=== PATIENT | female | born 1965 | race Caucasian/White ===

== ENCOUNTER 2020-02-22 15:28 | Outpatient (CLI) | payer OTHER, SELFPAY ==
--- NOTE | ~2020-02-22 | MM_ITS ---
EXAMINATION: MM screening khadar BI w shyam HISTORY: Screening TECHNIQUE: Craniocaudal and mediolateral oblique 3-D tomosynthesis images were obtained and synthetic 2-D images were generated. CAD analysis was submitted and interpreted. COMPARISON: 12/27/2018 BREAST PARENCHYMAL COMPOSITION: There are scattered areas of fibroglandular density. FINDINGS: There is no evidence of suspicious mass, calcification, or architectural distortion to sugg est malignancy in either breast. There has been no suspicious interval change. IMPRESSION: 1. No mammographic evidence of malignancy. 2. Recommend routine screening mammography in one year. BI-RADS Category 1: Negative Reviewed, dictated and finalized at location A. GE ATTENDANT
== END 2020-02-22 15:29 | disposition home or self-care (01) ==
PROVIDERS: PCP Nurse Practitioner Adult Health; Visit Provider Nurse Practitioner Adult Health
DX: Z12.31 Encounter for screening mammogram for malignant neoplasm of breast (principal)
CPT/HCPCS: 77063; 77067

== ENCOUNTER 2022-05-30 09:40 | Outpatient (CLI) | payer OTHER, SELFPAY ==
--- NOTE | ~2022-05-30 | US_ITS ---
Limited Abdominal Sonogram: Real-time sonographic imaging of the right upper quadrant was performed. Clinical History: Right upper quadrant pain Findings: The liver appears normal with no evidence of mass lesion or bile duct dilatation. Main por joe vein demonstrates normal direction of flow. The gallbladder is well distended, and appears normal with no evidence of gallstone or wall thickening. The common bile duct measures 4 mm. The visualize d pancreas, aorta, and IVC are unremarkable. Impression: No significant abnormality seen. Reviewed, dictated and finalized at location M. Impression: No significant abnormality seen.
== END 2022-05-30 09:41 | disposition home or self-care (01) ==
PROVIDERS: PCP Family Medicine; Visit Provider Physician Assistant Medical
DX: R10.11 Right upper quadrant pain (principal)
CPT/HCPCS: 76705

== ENCOUNTER 2022-07-11 16:09 | Outpatient (CLI) | payer OTHER, SELFPAY ==
--- NOTE | ~2022-07-11 | MM_ITS ---
EXAMINATION: MM screening khadar BI w shyam HISTORY: Screening mammogram TECHNIQUE: Craniocaudal and mediolateral oblique 3-D tomosynthesis images were obtained and synthetic 2-D images were generated. CAD analysis was submitted and interpreted. COMPARISON: 02/22/2020 bilateral screening mammogram 02/13/2019 limited right breast ultrasound examination 02/02/2019 diagnostic right mammogram 12/27/2018 bilateral screening mammogram/ BREAST PARENCHYMAL COMPOSITION: The breasts are almost entirely fatty. FINDINGS: Stable approximately 6.5 mm circumscribed opacity in the upper mid right breast, unchanged since 12/27/2018. There is no evidence of suspicious mass, calcification, or architectural distortion to suggest malignancy in either breast. There has been no suspicious interval change. IMPRESSION: 1. No mammographic evidence of malignancy. 2. Recommend routine screening mammography in one year. BI-RADS Category 2: Benign finding(s). Reviewed, dictated and finalized at location A.
== END 2022-07-11 16:10 | disposition home or self-care (01) ==
LOC: ANHIMG 16:12
PROVIDERS: PCP Family Medicine; Visit Provider Physician Assistant Medical
DX: Z12.31 Encounter for screening mammogram for malignant neoplasm of breast (principal)
CPT/HCPCS: 77063; 77067

== ENCOUNTER 2022-10-17 20:40 | Emergency (ER) | payer OTHER, SELFPAY ==
--- NOTE | ~2022-10-17 | XR_ITS ---
EXAM: XR shoulder LT min 2V, XR humerus LT DATE: 10/17/2022 21:25 HISTORY: FALL . COMPARISON: None available. FINDINGS: Normal mineralization. Comminuted fracture of the proximal left humerus, primarily involvi ng the surgical neck of the humerus, with one half shaft width medial displacement. A fracture line a ppears to involve the greater tuberosity. No lytic or blastic lesion. Joint spaces are maintained. No erosion or periosteal change. Soft tissues within normal limits. IMPRESSION: Comminuted and displaced fracture the proximal left humerus at the level of the surgical neck, with likely involvement of the greater tuberosity. Reviewed, dictated and finalized at location K. IMPRESSION: Comminuted and displaced fracture the proximal left humerus at the level of the surgical neck, with likely involvement of the greater tuberosity.
[2022-10-17 20:46] VITALS: BP 133/71; PULSE 75; RESP 20; TEMP 36.1; O2SAT 100
[2022-10-17] MEDS: ONDANSETRON INJ 4 MG/2 ML VIAL IV PUSH (21:50)
[2022-10-17] MEDS: CYCLOBENZAPRINE HCL 10 MG TABLET PO (21:57)
--- NOTE | 2022-10-17 22:33 | ED.UPPEXIN ---
HPI - Extremity Injury (Upper) General Chief Complaint: Extremity Injury, Upper Stated Complaint: L wrist and arm pain s/p fall Time Seen by Provider: 10/17/22 21:36 Source: patient Mode of arrival: EMS Limitations: no limitations History of Present Illness HPI narrative: This is a 56 year old female that presents to the ER for left arm pain ongoing since a fall just prior to arrival. Reports she tripped at work and fell forward. Reports catching herself with her left arm. She did not hit her head or lose consciousness. Reports pain and tingling to the left shoulder. Reports decreased ROM in the shoulder. Denies numbness. Related Data Allergies Allergy/AdvReac Type Severity Reaction Status Date / Time No Known Allergies Allergy Verified 10/17/22 21:32 Review of Systems Review of Systems: CONSTITUTIONAL: Denies fever MUSCULOSKELETAL: Reports joint pain, and myalgia. NEUROLOGIC: Denies numbness All systems reviewed & are unremarkable except as noted in HPI and below PMFSH Past Medical History Medical History Depressive disorder, not elsewhere classified Fibroids Headache Human papillomavirus Migraine NOS/intractable Obesity, unspecified Tension headache Surgical History Surgical History H/O hysterectomy for benign disease Family History Family History Father , 2010 Bladder cancer Lung cancer Mother Asthma Thyroid activity decreased Social History Social History Smoking status: Never smoker Second hand tobacco smoke exposure: No Alcohol intake: current Drinks per week: 1 Alcohol use details: wine Substance use: never Substance use type: does not use Lack of Transportation: No Lack of Food: Sometimes True Current Housing: I Have Housing Concerned About Future Housing: No Difficulty Paying Gas/Electric Bills: No Difficulty Paying for Meds: No Currently Unemployed: No Education: High School Diploma/GED Difficulty w/ Childcare or Family Care: No Living arrangements: with family Occupation/Education: occupation Gender identity (if verbalized by the patient): Female Sexual Orientation (if Verbalized by the Patient): Straight or Heterosexual Exam Narrative: GENERAL: Well-appearing, well-nourished, and in no acute distress. HEAD: Normocephalic, atraumatic. EYES: EOMI. CHEST: Clear to auscultation. No respiratory distress. No wheezes rales or rhonchi HEART: Regular rate and rhythm. No murmur heard. Normal peripheral pulses. EXTREMITIES: No edema or obvious deformity. Decreased active ROM in the left shoulder due to pain. Normal radial pulse. Normal sensation SKIN: Warm, dry, no rash. NEURO: No focal deficits. Alert and oriented x3. PSYCH: Normal mood and affect Course Course Emergency Course: Patient was updated on workup and agrees with plan of care Consultations Consultation #1: Spoke with Dr. Verdin about patient and workup. Would like patient placed in shoulder immobilizer. Will follow-up in clinic Date: 10/17/22 Vital Signs Vital signs: Vital Signs Temperature 97.0 F L 10/17/22 20:46 Pulse Rate 75 10/17/22 20:46 Respiratory Rate 20 10/17/22 20:46 Blood Pressure 133/71 10/17/22 20:46 Pulse Oximetry 100 10/17/22 20:46 Oxygen Delivery Room Air 10/17/22 20:46 Temperature 97.0 F L 10/17/22 20:46 Pulse Rate 75 10/17/22 20:46 Respiratory Rate 20 10/17/22 20:46 Blood Pressure 133/71 10/17/22 20:46 Pulse Oximetry 100 10/17/22 20:46 Oxygen Delivery Room Air 10/17/22 20:46 MDM - Extremity Injury (Upper) MDM Narrative Medical decision making narrative: Patient presents to the ER for left shoulder pain after an injury at work. Patient is neurovascularly intact
== END 2022-10-17 22:46 | disposition home or self-care (01) ==
PROVIDERS: Emergency Provider Physician Assistant; PCP Family Medicine
DX: S42.212A Unspecified displaced fracture of surgical neck of left humerus, initial encounter for closed fracture (principal); E66.9 Obesity, unspecified; Z68.35 Body mass index [BMI] 35.0-35.9, adult; Z90.710 Acquired absence of both cervix and uterus; W01.0XXA Fall on same level from slipping, tripping and stumbling without subsequent striking against object, initial encounter
CPT/HCPCS: 73030; 73060; 96374; 99284; A9270; J2270; J2405

== ENCOUNTER 2023-09-18 15:17 | Outpatient (CLI) | payer OTHER, SELFPAY ==
--- NOTE | ~2023-09-18 | XR_ITS ---
[id number] 09/18/2023 15:46 Indication: Right knee pain Procedure: 2 views right knee Comparison: No prior studies for comparison. Findings: There is mild osteoarthritis of the right knee. Small joint effusion. No fracture or trauma tic malalignment. No foreign bodies. Impression: 1: Mild tricompartment osteoarthritis of the right knee. Reviewed, dictated and finalized at location B. Impression: 1: Mild tricompartment osteoarthritis of the right knee.
== END 2023-09-18 15:18 ==
PROVIDERS: PCP Family Medicine; Visit Provider Student in an Organized Health Care Education/Training Program
DX: M25.561 Pain in right knee (principal); M17.11 Unilateral primary osteoarthritis, right knee
CPT/HCPCS: 73560

== ENCOUNTER 2024-07-16 10:13 | Outpatient (CLI) | payer OTHER, SELFPAY ==
--- NOTE | ~2024-07-16 | XR_ITS ---
Left Knee Technique: AP and sunrise views were obtained. Clinical History: Pain Findings: No fracture or dislocation is seen. Osseous alignment is anatomic. Joint spaces are preserv ed without degenerative or erosive change. Soft tissues are unremarkable. No joint effusion is seen. Impression: Unremarkable left knee radiographs. Reviewed, dictated and finalized at [facility]. Impression: Unremarkable left knee radiographs.
== END 2024-07-16 10:14 | disposition home or self-care (01) ==
LOC: MICIMG 10:14
PROVIDERS: PCP Family Medicine; Visit Provider Student in an Organized Health Care Education/Training Program
DX: M25.562 Pain in left knee (principal)
CPT/HCPCS: 73560

== ENCOUNTER 2024-12-07 09:23 | Outpatient (CLI) | payer OTHER, SELFPAY ==
--- NOTE | ~2024-12-07 | MM_ITS ---
EXAMINATION: MM screening [facility] BI w shyam HISTORY: Screening TECHNIQUE: Craniocaudal and mediolateral oblique 3-D tomosynthesis images were obtained and synthetic 2-D images were generated. CAD analysis was submitted and interpreted. COMPARISON: Comparison to multiple prior studies sequentially, with oldest reviewed study dated 12/27/2018. BREAST PARENCHYMAL COMPOSITION: Not Dense. The breasts are almost entirely fatty. FINDINGS: There is no evidence of suspicious mass, calcification, or architectural distortion to suggest malignancy in either breast. There has been no suspicious interval change. IMPRESSION: 1. No mammographic evidence of malignancy. 2. Recommend routine screening mammography in one year. BI-RADS Category 1: Negative Reviewed, dictated and finalized at location B.
--- OUTSIDE RECORDS SUMMARY | 2024-12-07 10:11 | XMS_ITS | Clinical Summary ---
Author Organization [facility] Address [address] [place] [address] Care Team Providers Care Supervisor Self Service Store Name Role Phone Mary Kendall Primary Care Provider Allergies Active Allergy Reactions Criticality Noted Date Comments Ciprofloxacin Rash Medium 10/03/2023 Medications calcium citrate malate-vit D3 250 mg-2.5 mcg (100 unit) tablet Take 1 tablet by mouth every morning Active dacutivs-gqu-mi obmju-S-uhdl304 800 mcg DFE- 150 mcg tablet Take 1 tablet by mouth every morning Active cholecalciferol (VITAMIN D-3) 50,000 unit capsule Take one capsule a week for 8 weeks. 8 capsule 12/10/2023 Active aspirin 81 mg enteric coated tabletIndicatio ns:prevention of thrombosis Take 1 tablet (81 mg total) by mouth 2 (two) times a day 60 tablet 12/21/2023 Active senna-docusate (PERICOLACE) 8.6-50 mg Take 1 tablet by mouth daily 30 tablet 12/21/2023 Active oxyCODONE (ROXICODONE) 5 mg immediate release tabletIndicatio ns:Pain Take 1 tablet (5 mg total) by mouth every 4 (four) hours as needed for pain (post op pain) 20 tablet 01/03/2024 Active cyclobenzaprine (FLEXERIL) 10 mg tablet Take 1 tablet (10 mg total) by mouth 3 (three) times a day as needed for muscle spasms for up to 10 days 30 tablet 01/03/2024 Active lidocaine (LIDODERM) 5 % Place 1 patch on the skin daily for 12 hours Remove & discard patch within 12 hours or as directed by . 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 08/09/2023 Status post surgery 08/09/2023 Closed 4-part fracture of pr oximal humerus, left, initial encounter 11/08/2022 Closed fracture of left proximal humerus 023 Abnormal mammogram 03/31/2019 Encounters Date Type Department Care Team Description 09/07/2024 1:30 PM CDT Office Visit [facility] Orth[facility] [address] [place] [address] [place] [address] Nataliya Wolf MD Status post reverse arthroplasty of left shoulder (Primary Dx) 09/07/2024 1:15 PM CDT - 09/07/2024 11:59 PM CDT Hospital Encounter [facility] [address] [place] [id number] Status post reverse arthroplasty of left shoulder Discharge Disposition: Discharge to home or self care from Last 3 Months Surgical History Surgery Date Site/Laterality Comments EYE SURGERY 02/12/1968 - 02/10/1969 Left strabismus TOTAL ABDOMINAL HYSTERECTOMY W/ BILATERAL SALPINGOOPHORECTOMY 02/11/2010 - 02/10/2011 BLADDER SURGERY 02/11/1977 - 02/10/1978 PELVIC LAPAROSCOPY x 5 for endometriosis, fibroids LEFT OOPHORECTOMY 02/11/1998 - 02/10/1999 VAGINAL DELIVERY x 2 US GUIDED ASPIRATION ABSCESS HEMATOMA CYST SOFT TISSUE 08/07/2023 N/A IR PICC LINE PLACEMENT > 5 YEARS 08/12/2023 N/A FLUORO GUIDED ASPIRATION SHOULDER LEFT 11/18/2023 Left Medical History Medical History Date Comments Anemia Arthritis History of irregular heartbeat Family History Medical History Relation Name Comments Crohn's disease Daughter awareness/recall during GA Daughter Bladder Cancer Father Stomach cancer Father's Brother Asthma Mother Thyroid disease Mother Anesthesia problems Neg Hx Malig Hypertension Neg Hx Malig Hyperthermia Neg Hx Pseudochol deficiency Neg Hx Relation Name Status Comments Daughter Alive Father Father's Brother Mother Alive Social History Tobacco Use Types Packs/Day Years Used Date Smoking Tobacco: Never Smokeless Tobacco: Never OASIS D0700: Social Isolation Answer Da te Recorded Frequency of experiencing loneliness or isolatio n Never 08/15/2023 AUDIT-C Answer Date Recorded Q1: How often do you have a drink containing alcohol? Never 12/09/2023 Q2: How many drinks containi ng alcohol do you have on a typical day when you are drinking? Patient does not drink Q3: How often do you have si x or more drinks on one occasion? Never 12/09/2023 Personal Safety Answer Date Recorded Have you ever been in or are you currently in a harmful physical or emotional relationship or is someone making you feel afraid or unsafe? Denies 12/20/2023 Comments No Sex and Gender Information Value Date Recorded Sex Assigned at Not on file Legal Sex Female 8:53 AM CDT Gender Identity Not on file Sexual Orientation Not on file Obstetrics History Last Filed Vital Signs Vital Sign Reading Time Taken Comments Blood Pressure 110/72 01/20/2024 10:18 AM GAS WELDING MACHINE OPERATOR Pulse 80 01/20/2024 10:18 AM GAS WELDING MACHINE OPERATOR Temperature 36.6 C (97.9 F) 01/20/2024 10:18 AM GAS WELDING MACHINE OPERATOR Respiratory Rate 20 12/21/2023 12:17 PM GAS WELDING MACHINE OPERATOR Oxygen Saturation 97% 01/20/2024 10:18 AM GAS WELDING MACHINE OPERATOR Inhaled Oxygen Concentration - - Weight 112.9 kg (249 lb) 01/20/2024 10:18 AM GAS WELDING MACHINE OPERATOR Height 165.1 cm (5' 5) 01/20/2024 10:18 AM GAS WELDING MACHINE OPERATOR Body Mass Index 41.44 01/20/2024 10:18 AM GAS WELDING MACHINE OPERATOR Plan of Treatment Health Maintenance Due Date Last Done Comments Breast Cancer Screening-Mammogram 1964 Colon Cancer Screening-Colonoscopy 1964 Depression Screening 1964 Hepatitis C Screening 1964 DTaP/Tdap/Td Vaccine (1 - Tdap) 11/29/1975 Hepatitis B Screening 1982 Regular Well Visit/Exam 18-64 1982 Zoster Vaccine (1 of 2) 2014 Covid-19 Vaccine (3 - 2024-2 6 season) 2024 07/31/2020, 07/10/2020 Influenza Vaccine (#1) 2024 Pneumococcal vaccine <65 Aged Out No longer eligible based on patient's age to complete this topic Medical Devices Implanted Type Area Bar Steward Device Identifier Shelf Expiration Date Model / Serial / Lot [employer] Palacos R High Viscosity Cement 40gm Bone Green [id number] - [id number] Implanted:Qty : 1 on 08/09/2023 by Nataliya Wolf MD at [facility] Bone Cement Left: Shoulder [employer] [id number] 05/12/2027 [id number] / / [id number] [employer] Tornier Aequalis Perform 36mm Reverse Shoulder Standard Sphere [id number] - [id number] Implanted:Qty : 1 on 08/09/2023 at [facility] Left: Shoulder [employer] 05/15/2028 [id number] / [id number] / [employer] Aequalis Perform Reversed 5mm 34mm Peripheral Glenoid Screw Oeg834 - [id number] Implanted:Qty : 1 on 08/09/2023 at [facility] Left: Shoulder [employer] [id number] / / [employer] Tornier Aequalis Perform 25mm Lateralize Augment Reverse Shoulder Tmf999 - [id number] Implanted:Qty : 1 on 12/20/2023 at [facility] Left: Shoulder [employer] 07/27/2028 [id number] / [id number] / [employer] Tornier Aequalis Perform 36mm Reverse Shoulder Standard Sphere [id number] - [id number] Implanted:Qty : 1 on 12/20/2023 at [facility] Left: Shoulder [employer] 08/15/2028 [id number] / [id number] / [employer] Insert Perform Ret Ve [id number] - [id number] Implanted:Qty : 1 on 12/20/2023 at [facility] Left: Shoulder [employer] 12/30/2024 [id number] / [id number] / [employer] Screw Glenoid Locking Reverse Aequalis Perform 5.0x22mm Titanium Lua332 - [id number] Implanted:Qty : 1 on 12/20/2023 at [facility] Left: Shoulder [employer] [id number] / / [employer] Stem Fracture Sz 14 L 130mm Humeral [id number] - [id number] Implanted:Qty : 1 on 12/20/2023 at [facility] Left: Shoulder [employer] 01/26/2028 [id number] / [id number] / [employer] Aequalis Perform Reversed 5mm 30mm Peripheral Glenoid Screw Orb686 - [id number] Implanted:Qty : 1 on 12/20/2023 at [facility] Left: Shoulder [employer] [id number] / / [employer] Aequalis Perform Reversed 6.5mm 35mm Central Glenoid Screw Tmp317 - [id number] Implanted:Qty : 1 on 12/20/2023 at [facility] Left: Shoulder [employer] [id number] / / [employer] Aequalis Perform Reversed 5mm 18mm Peripheral Glenoid Screw Hvy602 - [id number] Implanted:Qty : 1 on 12/20/2023 at [facility] Left: Shoulder [employer] [id number] / / [employer] Screw Glenoid Locking Reverse Aequalis Perform 5.0x26mm Titanium Vsz860 - [id number] Implanted:Qty : 1 on 12/20/2023 at [facility] Left: Shoulder [employer] [id number] / / Explanted Type Area Bar Steward Device Identifier Shelf Expiration Date Model / Serial / Lot [employer]x.[employer] Palacos R High Viscosity Cement 40gm Bone Green [id number] - [id number] Implanted:Qty: 1 on 08/09/2023 by Nataliya Wolf MD at [facility] Explanted:Qty: 1 on 12/20/2023 at [facility] Bone Cement Left: Shoulder [employer] [id number] 05/12/2027 [id number] / / [id number] [employer] Palacos R High Viscosity Cement 40gm Bone Green [id number] - [id number] Implanted:Qty: 1 on 08/09/2023 by Nataliya Wolf MD at [facility] Explanted:Qty: 1 on 12/20/2023 at [facility] Bone Cement Left: Shoulder [employer] [id number] 05/12/2027 [id number] / / [id number] [employer] Tornier Aequalis Perform 25mm Lateralize Augment Reverse Shoulder [id number] - [id number] Implanted:Qty: 1 on 11/08/2022 by Nataliya Wolf MD at [facility] Explanted:Qty: 1 on 08/09/2023 by Nataliya Wolf MD at [facility] Left: Shoulder [employer] 09/15/2027 [id number] / / [id number] [employer] Aequalis Perform Reversed 5mm 34mm Peripheral Glenoid Screw Djx964 - [id number] Explanted:Qty: 1 on 08/09/2023 at [facility] Left: Shoulder [employer] HFO144 / / [employer] Aequalis Perform Reversed Od6.5 Mm L30 Mm Central Glenoid Screw Baseplate Nonsterile Zlh928 - [id number] Implanted:Qty: 1 on 11/08/2022 by Nataliya Wolf MD at [facility] Explanted:Qty: 1 on 08/09/2023 by Nataliya Wolf MD at [facility] Left: Shoulder [employer] [id number] / / [employer] Aequalis Perform Reversed 5mm 18mm Peripheral Glenoid Screw [id number] - [id number] Implanted:Qty: 2 on 11/08/2022 by Nataliya Wolf MD at [facility] Explanted:Qty: 2 on 08/09/2023 by Nataliya Wolf MD at [facility] Left: Shoulder [employer] [id number] / / [employer] Aequalis Perform Reversed 5mm 30mm Peripheral Glenoid Screw Kba169 - [id number] Implanted:Qty: 2 on 11/08/2022 by Nataliya Wolf MD at [facility] Explanted:Qty: 2 on 08/09/2023 by Nataliya Wolf MD at [facility] Left: Shoulder [employer] [id number] / / [employer] Tornilisa Reaalis Perform 36mm Reverse Shoulder Standard Sphere Kqy316 - [id number] Implanted:Qty: 1 on 11/08/2022 by Nataliya Wolf MD at [facility] Explanted:Qty: 1 on 08/09/2023 by Nataliya Wolf MD at [facility] Left: Shoulder [employer] 03/15/2026 [id number] / / [id number] Description:Explanted and di sposed of per OR protocol [facility] Stem Fracture Sz 12 L 130mm Humeral [id number] - [id number] Implanted:Qty: 1 on 11/08/2022 by Nataliya Wolf MD at [facility] Explanted:Qty: 1 on 08/09/2023 by Nataliya Wolf MD at [facility] Left: Shoulder [employer] [id number] 07/14/2027 [id number] / / [id number] [employer] [id number] Insert Perform [id number] - [id number] - [id number] Implanted:Qty: 1 on 11/08/2022 by Nataliya Wolf MD at [facility] Explanted:Qty: 1 on 08/09/2023 by Nataliya Wolf MD at [facility] Left: Shoulder [employer] [id number] 02/15/2025 [id number] / [id number] / Description:Explanted and di sposed of per OR protocol Procedures Procedure Name Priority Date/Time Associated Diagnosis Comments XR SHOULDER LEFT 2 OR MORE VIEWS Schedule Routine, Read Routine (OP Routine) 09/07/2024 2:03 PM CDT Status post reverse arthroplasty of left shoulder from Last 3 Months Results * XR Shoulder Left 2 or More Views (09/07/2024 2:03 PM CDT) Anatomical Region Laterality Modality Upper Extremities, Shoulder Left Comp uted Radiography 09/07/2024 4:38 PM CDT Impressions 09/07/2024 8:18 PM CDT 1. Unchanged reverse total left shoulder arthroplasty in near-anatomic alignment. Dictated by: Nelly Sanabria M.D. The radiology attending physician has personally reviewed this study, and had reviewed and/or edited this written report and agrees with it. Electronically signed by: Pilar Perkins MD Narrative 09/07/2024 8:18 PM CDT EXAMINATION: XR SHOULDER LEFT 2 OR MORE VIEWS HISTORY: Left shoulder arthroplasty, 12/20/2023. COMPARISON: Left shoulder x-rays 07/27/2024. FINDINGS: 4 views of the left shoulder are submitted with comparison to left shoulder x-rays 07/27/2024. There is a reverse total left shoulder arthroplasty in unchanged near-anatomic position. The components appear intact. There is no periprosthetic fracture or new lucency. There is no dislocation. Unchanged mild acromioclavicular osteoarthritis. Procedure Note Lyubov Perkisn MD - 09/07/2024 EXAMINATION: XR SHOULDER LEFT 2 OR MORE VIEWS HISTORY: Left shoulder arthroplasty, 12/20/2023. COMPARISON: Left shoulder x-rays 07/27/2024. FINDINGS: 4 views of the left shoulder are submitted with comparison to left shoulder x-rays 07/27/2024. There is a reverse total left shoulder arthroplasty in unchanged near-anatomic position. The components appear intact. There is no periprosthetic fracture or new lucency. There is no dislocation. Unchanged mild acromioclavicular osteoarthritis. IMPRESSION: 1. Unchanged reverse total left shoulder arthroplasty in near-anatomic alignment. Dictated by: Nelly Sanabria M.D. The radiology attending physician has personally reviewed this study, and had reviewed and/or edited this written report and agrees with it. Electronically signed by: Pilar Perkins MD Nataliya Wolf MD IMG XR PROCEDURES Fin al Result from Last 3 Months Insurance [facility] Member Subscriber Plan / Payer (Ef fective 2021-Present) Name:Mya Reese Member ID:[id number] Relation to Subscriber:Self Name:Mya Reese Subscriber ID:[id number] Payer ID:[id number] (NAIC) Type:[facility] HMO/PPO Address: [place] [id number] [employer] WORKERS COMPENSATION GENERIC WORKERS COMPENSATION GENERIC WORKERS COMPENSATION GENERIC WORKERS COMPENSATION GENERIC WORKERS COMPENSATION GENERIC WORKERS COMPENSATION GENERIC WORKERS COMPENSATION GENERIC WORKERS COMPENSATION GENERIC WORKERS COMPENSATION GENERIC WORKERS COMPENSATION GENERIC COMPENSATION WORKERS COMPENSATION GENERIC Advance Directives For more information, please contact: [phone] * Full Code (Latest Code Status on File) Date Activated Date Inactivated Comments 12/20/2023 5:40 PM 12/21/2023 6:21 PM * Full Code Date Activated Date Inactivated Comments 08/09/2023 6:24 PM 08/14/2023 8:51 PM Care Teams Supervisor Self Service Store Relationship Specialty Start Date End Date Mary Kendall PA [address] [place] [address] PCP - General Family Medicine 11/05/22
--- OUTSIDE RECORDS SUMMARY | 2024-12-07 10:11 | XMS_ITS | Clinical Summary ---
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 Abnormal mammogram 03/31/2019 Steatosis of liver 11/18/2018 Immunizations Immunization Administration Dates Next Due PFIZER COVID-19 (ORIGINAL FO RMULATION, PURPLE CAP) mRNA, LNP-S, PF, 30 MCG/0.3 ML DOSE 07/31/2020,07/10/2020 Family History Medical History Relation Comments Heart Disease Father Lung Cancer Father bladder cancer Father Thyroid Disease Mother Heart Disease Paternal Grandmother Relation Status Comments Father Mother Paternal Grandmother Social History Tobacco Use Types Packs/Day Years Used Date Smoking Tobacco: Never Smokeless Tobacco: Never Tobacco Cessation:Counseling Given: No Alcohol Use Standard Drinks/Week Comments Never 0 (1 standard drink = 0.6 oz pur e alcohol) PHQ-2 Answer Date Recorded PHQ-2 Score - If the patient scores above 3, please move on to questions 3-9 2 05/29/2021 Comments No Sex and Gender Information Value Date Recorded Sex Assigned at Not on file Legal Sex Female 9:34 AM CDT Gender Identity Female 05/26/2021 10:45 AM CDT Sexual Orientation Straight 05/26/2021 10 :45 AM CDT Last Filed Vital Signs Vital Sign Reading Time Taken Comments Blood Pressure 120/80 05/29/2021 2:16 PM CDT Pulse 82 05/29/2021 2:16 PM CDT Temperature 36.2 C (97.1 F) 05/29/2021 2:16 PM CDT Respiratory Rate 16 05/29/2021 2:16 PM CDT Oxygen Saturation 99% 05/29/2021 2:16 PM CDT Inhaled Oxygen Concentration - - Weight 105.8 kg (233 lb 3.2 oz) 05/29/2021 2:16 PM CDT Height 166 cm (5' 5.35) 05/29/2021 2:16 PM CDT Body Mass Index 38.39 05/29/2021 2:16 PM CDT Plan of Treatment Health Maintenance Due Date Last Done Comments Colorectal Cancer Screening Colonoscopy (10 Years) 1964 Annual Physical 11/29/1967 DTaP, Tdap and Td Vaccines ( 1 - Tdap) 11/29/1983 Hepatitis A Vaccines (1 of 2 - Risk 2-dose series) 11/29/1983 Mammogram Screening 2004 Pneumococcal Vaccine: 50+ Years (1 of 1 - PCV) 2014 Zoster Vaccines (1 of 2) 2014 COVID-19 Vaccine (3 - 2024-2 6 season) 2024 07/31/2020, 07/10/2020 Influenza Adult (#1) 2024 RSV Immunization or 60+ Years (1 - Risk 60-74 years 1-dose series) 2024 Hepatitis C Completed 06/21/2021 Meningococcal B Vaccine Aged Out No l onger eligible based on patient's age to complete this topic Meningococcal Vaccine Aged Out No chetan gabrielle eligible based on patient's age to complete this topic RSV Immunizations Under 20 Months Aged Out No longer eligible b ased on patient's age to complete this topic Procedures Procedure Name Priority Date/Time Associated Diagnosis Comments HEPATITIS C ANTIBODY W/RFX TO HCV RNA Routine 06/21/2021 11:35 AM CDT from Last 3 Months or Most Recently Relevant to Health Maintenance Results * HEPATITIS C ANTIBODY W/RFX TO HCV RNA (06/21/2021 11:35 AM CDT) HEPATITIS C AB NON-REACTI VE NON-REACT SANDEEP [facility] SIGNAL TO CUTOFF 0.02 <[address] [facility] Comment: HCV antibody was non-reactive. There is no laboratory evidence of HCV infection. In most cases, no further action is required. However, if recent HCV exposure is suspected, a test for HCV RNA (test code 58996) is suggested. For additional information please refer to http://education.TheReadingRoom/faq/ZZK77b4 (This link is being provided for informational/ educational purposes only.) 06/21/2021 11:3 5 AM CDT 06/21/2021 11:36 AM CDT Baron Nieves DO LABORATORY Final Result [facility] [address] [place] [address] from Last 3 Months or Most Recently Relevant to Health Maintenance Care Teams Research Geologist Relationship Specialty Start Date End Date Chichi Sarah MD [facility] [place] [address] PCP - General FAMILY PRACTICE 03/08/22
== END 2024-12-07 09:24 | disposition home or self-care (01) ==
LOC: ANHFOHIMG 09:24
PROVIDERS: PCP Family Medicine; Visit Provider Family Medicine
DX: Z12.31 Encounter for screening mammogram for malignant neoplasm of breast (principal)
CPT/HCPCS: 77063; 77067